=== PATIENT | female | born 1995 | race Caucasian/White ===

== ENCOUNTER 2020-12-24 10:40 | Emergency (ER) | payer OTHER ==
[~2020-12-24] VITALS: Ht 157.5 cm; Wt 62.1 kg
[2020-12-24 10:46] VITALS: BP 111/50
[2020-12-24 11:53] VITALS: BP 108/53
== END 2020-12-24 11:54 | disposition home or self-care (01) ==
LOC: MED 10:40
DX: S89.81XA Other specified injuries of right lower leg, initial encounter (principal); M79.644 Pain in right finger(s); W18.39XA Other fall on same level, initial encounter; Y93.89 Activity, other specified; Y92.89 Other specified places as the place of occurrence of the external cause; Y99.8 Other external cause status
CPT/HCPCS: 73562; 99283

== ENCOUNTER 2021-05-04 11:12 | Emergency (ER) | payer OTHER ==
[~2021-05-04] VITALS: Ht 157.5 cm; Wt 62.6 kg
[2021-05-04 11:14] VITALS: BP 90/46
--- NOTE | 2021-05-04 11:19 | NUR ---
Patient ambulated to bed 8. RN evaluating the patient at bedside.
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
[2021-05-04] MEDS ORDERED: KETOROLAC 60 MG/2 ML VIAL IM ONE (12:00)
[2021-05-04] MEDS ORDERED: ACET-8386 PO (12:18)
[2021-05-04] MEDS ORDERED: IBUP-2213 PO (12:18)
--- NOTE | 2021-05-04 12:25 | NUR ---
Patient discharged with v/s stable. Written and verbal after care instructions given and explained. Patient alert, oriented and verbalized understanding of instructions. Ambulatory with steady gait. All questions addressed prior to discharge. ID band removed. Patient advised to follow up with PMD. Rx of Ibuprofen and [place] given. Patient educated on indication of medication including possible reaction and side effects. Opportunity to ask questions provided and answered.
[2021-05-04 12:26] VITALS: BP 90/46
== END 2021-05-04 12:25 | disposition home or self-care (01) ==
LOC: MED 11:12
DX: M25.561 Pain in right knee (principal)
CPT/HCPCS: 96372; 99283; J1885

== ENCOUNTER 2021-10-14 10:57 | Emergency (ER) | payer OTHER ==
[~2021-10-14] VITALS: Ht 157.5 cm; Wt 62.6 kg
[~2021-10-14 10:57] MED LIST: ACET-8386 PO; IBUP-2213 PO
[2021-10-14 11:03] VITALS: BP 113/63
--- NOTE | 2021-10-14 11:10 | NUR ---
Patient ambulated to bed 11 with steady/even gait
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
--- NOTE | 2021-10-14 11:21 | NUR ---
BROOKS Clarke is evaluating patient at bedside
[2021-10-14] MEDS ORDERED: BACITRACIN OINT 500 UNITS/GM PKT TP ONE (11:25)
[2021-10-14] MEDS ORDERED: KETOROLAC 30 MG/ML VIAL IM ONE (11:25)
--- NOTE | 2021-10-14 11:35 | NUR ---
Pt transported to [facility] by
--- NOTE | 2021-10-14 11:43 | NUR ---
Pt returned from RAD by WC.
--- NOTE | 2021-10-14 11:46 | NUR ---
EMT at bedside for wound dressing
--- NOTE | 2021-10-14 11:48 | NUR ---
per ermd pt right ankle was dressed wth bacitracin and wraped with gauze.
--- NOTE | 2021-10-14 12:04 | NUR ---
Pt states dressing and gauze roll may be too tight. EMT made aware at bedside for rewrap.
--- NOTE | 2021-10-14 12:04 | NUR ---
Pt states "I feel like the medication is still kicking in." Reports relief, 6/10 pain at this time. All pt needs met.
[2021-10-14] MEDS ORDERED: CEPH-588 PO (12:43)
[2021-10-14] MEDS ORDERED: NAPR-54 PO (12:43)
[2021-10-14] MEDS ORDERED: BACI1PAC6 TP (12:46)
[2021-10-14 13:00] VITALS: BP 108/68
--- NOTE | 2021-10-14 13:05 | NUR ---
Patient discharged with v/s stable. Written and verbal after care instructions given and explained. Patient alert, oriented and verbalized understanding of instructions. Ambulatory with steady gait. All questions addressed prior to discharge. ID band removed. Patient advised to follow up with PMD. Rx of Bacitracin, Cephalexin, Naproxen given. Patient educated on indication of medication including possible reaction and side effects. Opportunity to ask questions provided and answered.
== END 2021-10-14 13:05 | disposition home or self-care (01) ==
LOC: MED 10:57
DX: S81.801A Unspecified open wound, right lower leg, initial encounter (principal); Z79.899 Other long term (current) drug therapy; X58.XXXA Exposure to other specified factors, initial encounter; Y93.89 Activity, other specified; Y92.89 Other specified places as the place of occurrence of the external cause; Y99.8 Other external cause status
CPT/HCPCS: 73590; 96372; 99283; J1885

== ENCOUNTER 2023-03-04 18:21 | Emergency (ER) | payer OTHER ==
[~2023-03-04] VITALS: Ht 157.5 cm; Wt 59.9 kg
[~2023-03-04 18:21] MED LIST changes: -ACET-8386 PO; +ACET-8905 PO; +BACI-416 TP; +CEPH-588 PO; +NAPR-54 PO
[2023-03-04 18:26] VITALS: BP 102/83
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
[2023-03-04] MEDS ORDERED: ACETAMINOPHEN 325 MG TAB PO ONE (18:50)
[2023-03-04] MEDS ORDERED: IBUP-2213 PO (19:43)
--- NOTE | 2023-03-04 19:47 | NUR ---
BROOKS VERDUZCO explained results and treatment plans.
[2023-03-04 20:05] VITALS: BP 114/83
== END 2023-03-04 20:05 | disposition home or self-care (01) ==
LOC: MED 18:21
DX: S86.811A Strain of other muscle(s) and tendon(s) at lower leg level, right leg, initial encounter (principal); R03.0 Elevated blood-pressure reading, without diagnosis of hypertension; V49.88XA Car occupant (driver) (passenger) injured in other specified transport accidents, initial encounter; Y93.89 Activity, other specified; Y92.89 Other specified places as the place of occurrence of the external cause; Y99.8 Other external cause status
CPT/HCPCS: 73562; 99283